=== PATIENT | male | born 2000 | race Two or more races ===

== ENCOUNTER 2024-11-20 21:01 | Emergency (ER) | payer SELFPAY ==
[2024-11-20 21:03] VITALS: BMI 30.7
[2024-11-20 21:51] VITALS: BP 151/97; PULSE 108; RESP 20; TEMP 37.2; O2SAT 99
--- NOTE | 2024-11-20 21:51 | XR_ITS ---
Examination: CT abdomen and pelvis without contrast. Coronal 3-D reconstructions. Sagittal 2-D reconstructions. Date and time of exam:November 20, 2024 11:16 PM INDICATIONS: Flank pain and back pain 538 urinary urgency CTDI: vol (mGy): 8.77 DLP: (mGycm): 538 Technique: Axial images of the abdomen have been obtained, 3 mm slice thickness Intravenous contrast material has not been administered. Low dose protocols were performed. One or more of the following dose reduction techniques were used; automated exposure control, adjustment of the mA and/or KV according to patient size, use of iterative reconstruction technique. Findings: No focal liver or splenic lesions No gallstones No pancreatic mass Mild right hydronephrosis 3 mm distal right ureterovesical junction calculus Normal appendix No bowel obstruction Contracted urinary bladder IMPRESSION: Mild right hydronephrosis secondary to 3 mm distal right ureterovesical junction calculus
--- NOTE | 2024-11-20 21:51 | PD.EDBACK ---
ED Back Injury Pain RME/HPI General Chief Complaint: Abdominal Pain Stated Complaint: LOWER ABD AND BACK PAIN, CONSTIPATION Time Seen by Provider: 11/20/24 21:50 Source: patient Arrival date/time: 11/20/24 21:01 Mode of arrival: ambulatory Limitations: no limitations RME / HPI RME / HPI Narrative: Patient is a healthy 24-year-old male with no past medical or surgical history. He states he is here today with a 1 hour history of low back pain. He also endorses a 2-day history of urinary frequency and urgency. He has no dysuria or hematuria. He denies any vomiting or nausea. He states his last bowel movement was 5 days ago and he does endorse some mild lower abdominal cramping today. Denies any fevers or chills. He has no testicular pain. He has no other acute complaints or concerns. Related Data Previous Rx's ?Medication ?Instructions ?Recorded ibuprofen 600 mg tablet 600 mg PO Q8H PRN pain #20 tabs 11/20/24 tamsulosin 0.4 mg capsule (Flomax) 0.4 mg PO QDAY #20 caps 11/20/24 cephalexin 500 mg capsule 500 mg PO QID #40 caps 11/21/24 hydrocodone 5 mg-acetaminophen 325 1 tab PO Q6H PRN pain #12 tabs 11/21/24 mg tablet ondansetron 4 mg disintegrating 4 mg PO Q8H PRN nausea and 11/21/24 tablet vomiting #20 tabs Allergies Allergy/AdvReac Type Severity Reaction Status Date / Time No Known Allergies Allergy Verified 11/20/24 21:03 Review of Systems Review of Systems Systems Reviewed: All systems reviewed, normal except as documented ED Exam General Limitations: Present no limitations General appearance: Present alert and in no apparent distress Head Head exam: Present atraumatic Eye Eye exam: Present normal appearance, PERRL and EOMI ENT ENT exam: Present normal exam, normal oropharynx and mucous membranes moist Neck Neck exam: Present normal inspection, full ROM and trachea midline Chest Chest inspection: Present normal inspection and symmetric chest wall rise Respiratory Respiratory exam: Present normal lung sounds bilaterally Cardiovascular Cardiovascular exam: Present regular rate, normal rhythm and normal heart sounds Abdominal Exam Abdominal exam: Present soft; Absent distention, tenderness, guarding or rebound Extremities Exam Extremities exam: Present normal inspection and full ROM Back Exam Back exam: Present normal inspection and full ROM; Absent CVA tenderness (R) or CVA tenderness (L) Neurological Exam Neurological exam: Present alert and oriented X3 Psychiatric Psychiatric exam: Present normal affect and normal mood Skin Skin exam: Present warm, dry, intact and normal color Course Quality Measures none Orders Category Date Time Status CT abdomen pelvis wo con Stat Exams 11/20/24 21:51 Completed CBC Stat Lab 11/20/24 21:58 Completed CMP [Comprehensive Metabolic Panel] Stat Lab 11/20/24 21:58 Completed UA, C/S IF [Urinalysis, C/S if Indicated] Stat Lab 11/20/24 22:08 Completed Ketorolac Inj [Toradol Inj] Med 11/20/24 21:51 Discontinued 15 mg IM X1 ONE Lidocaine 5% Patch Med 11/20/24 21:51 Discontinued 1 patch TOP X1 ONE Morphine Inj Med 11/21/24 01:09 Discontinued 4 mg IVP X1 ONE Ondansetron Inj [Zofran Inj] Med 11/21/24 01:09 Discontinued 4 mg IVP X1 ONE Sodium Chloride 0.9% 1000 ml [Ns] 1,000 ml Med 11/21/24 01:10 Discontinued IV 999 mls/hr Tamsulosin HCl [Flomax] Med 11/21/24 01:12 Discontinued 0.4 mg PO X1 ONE cefTRIAXone [Rocephin] 2 gm Med 11/21/24 01:10 Discontinued SODIUM CHLORIDE 0.9% (Popper) [Ns 0.9% (P)] 50 ml IV X1 Vital Signs Vital signs: Vital Signs Temperature 98.9 F 11/20/24 21:51 Pulse Rate 108 H 11/20/24 21:51 Respiratory Rate 20 11/20/24 21:51 Blood Pressure 151/97 H 11/20/24 21:51 Pulse Oximetry (%) 99 11/20/24 21:51 Oxygen Delivery Method Room Air 11/20/24 21:51 Back Pain / Injury MDM Narrative MDM Narrative:: Patient is a healthy 24-year-old male with no past medical or surgical history. He states he is here today with a 1 hour history of low back pain. He also endorses a 2-day history of urinary frequency and urgency. He has no dysuria or hematuria. He denies any vomiting or nausea. He states his last bowel movement was 5 days ago and he does endorse some mild lower abdominal cramping today. Denies any fevers or chills. He has no testicular pain. He has no other acute complaints or concerns. On exam, patient is nontoxic. No visible signs distress. Vital signs are stable. He has no CVA tenderness. Abdomen is soft and supple with no masses or guarding. Patient has a leukocytosis of 16.7 K, no anemia. There is mild hyperglycemia at 121, creatinine is unremarkable. CMP is otherwise unremarkable. Urinalysis obtained which reveals 42 erythrocytes, 6 leukocytes, [place]. Calcium oxalate crystals are present. CT of the abdomen pelvis is pending at the time of signout. Suspect patient has ureterlithiasis. Case signed out to my peer FER Jones at shift change. Patient data External records reviewed:: None Clinical information provided by:: patient Social determinants that could affect healthcare access:: none Patient has the following chronic illnesses:: n/a How is presenting disease/condition affected by chronic disease/condition?: uneffected by Evaluation data The following diagnostics were reviewed and interpreted by me:: lab results and radiology exam(s) Lab and/or radiology exams considered but not ordered:: n/a Interpretation Summary: n/a Medications / Prescriptions Medications or Prescriptions considered but not ordered:: n/a Medication administrations:: Medication Administration History Discontinued Medications Sodium Chloride (Ns) 1,000 mls @ 999 mls/hr IV .Q1H1M ONE Stop: 11/21/24 02:10 Last Infusion: 11/21/24 01:55 Dose: Infused Documented By: Admin: 11/21/24 01:20 Dose: 999 mls/hr Documented By: BRADEN Ceftriaxone Sodium 2 gm/ (Sodium Chloride) 50 mls @ 100 mls/hr IV X1 ONE Stop: 11/21/24 01:39 Last Infusion: 11/21/24 01:56 Dose: Infused Documented By: Admin: 11/21/24 01:25 Dose: 100 mls/hr Documented By: BRADEN Ketorolac Tromethamine (Ketorolac Inj 60 Mg/2 Ml Vial) 15 mg IM X1 ONE Stop: 11/20/24 21:52 Last Admin: 11/20/24 22:08 Dose: 15 mg Documented By: VANI Lidocaine (Lidocaine 5% 1 Patch) 1 patch TOP X1 ONE Stop: 11/20/24 21:52 Last Admin: 11/20/24 22:10 Dose: 1 patch Documented By: VANI Morphine Sulfate (Morphine Sulf Inj 10 Mg/Ml Vial) 4 mg IVP X1 ONE Stop: 11/21/24 01:10 Last Admin: 11/21/24 01:24 Dose: 4 mg Documented By: BRADEN Ondansetron HCl (Ondansetron Inj 2 Mg/Ml Inj 2 Ml) 4 mg IVP X1 ONE; Protocol Stop: 11/21/24 01:10 Last Admin: 11/21/24 01:24 Dose: 4 mg Documented By: BRADEN Tamsulosin HCl (Tamsulosin Hcl 0.4 Mg Capsule) 0.4 mg PO X1 ONE Stop: 11/21/24 01:13 Last Admin: 11/21/24 01:25 Dose: 0.4 mg Documented By: BRADEN see above Consultations Consultation(s) initiated? (list below): No Diagnosis Most likely diagnosis given after review of the tests above:: dyuria, uti, kidney stone Admission Indicated Admission indicated?: not indicated Admission Request Was there a request for admission?: No Disposition Plan Disposition Plan: Discharge Discharge Attestation Discharge Attestation: The patient and all family members were given an opportunity to ask questions and understood the discharge instructions. Discharge instructions specifically effects, indications for sooner follow up or return to the emergency department, and the expected course of current diagnosis. Patient condition: Stable Discharge Plan Plan Patient Disposition: HOME (Self Care) Patient condition on transfer: Stable Prescriptions/Referrals Prescriptions/Med Rec: New tamsulosin [Flomax] 0.4 mg capsule 0.4 mg PO QDAY Qty: 20 0RF ibuprofen 600 mg tablet 600 mg PO Q8H PRN (Reason: pain) Qty: 20 0RF hydrocodone-acetaminophen 5-325 mg tablet 1 tab PO Q6H MDD max 4 tabs per day PRN (Reason: pain) Qty: 12 0RF ondansetron 4 mg tablet,disintegrating 4 mg PO Q8H PRN (Reason: nausea and vomiting) Qty: 20 0RF cephalexin 500 mg capsule 500 mg PO QID Qty: 40 0RF Referrals: Eric Torres MD [Physician] - 11/21/24 (For further evaluation and treatment of hydronephrosis and ureteral stone) No Primary/Family,Physician [Primary Care Provider] - In 1 week Problem List Clinical Impression: Acute flank pain, Ureteral stone, Urinary tract infection, Hydronephrosis Patient/Caregiver Discharge Instructions Education Materials: Urinary Tract Infections in Men, Kidney Stones: Your Evaluation, Understanding Hydronephrosis, ED Flank Pain, Uncertain Cause Additional Instructions: Follow-up with your primary care physician in 2 days for reevaluation and to be referred to urologist for further evaluation and treatment of your hydronephrosis and ureteral stone worsening symptoms or any emergent concerns such as fever chills abdominal pain flank pain unable to urinate blood in the urine call 911 or go to the nearest emergency room it is very important to see urologist in 2 days if not return to the emergency room immediately or call 911 worsening symptoms or any emergent concern call 911 or go to the nearest emergency room take your medication as directed finish the course of antibiotic increase water intake keep hydrated drink cranberry juice Pedialyte Gatorade for hydration Print Language: German Stand Alone Forms: Shauna Award Info., Patient Portal Info Letter PA/[employer] Supervising Physician PA/SIGRID Supervising Physician: Dr. Smith
[2024-11-20 22:05] LABS: Basophils # (Auto) 0.1 Thou/mm3 (0.0-0.2); Basophils % (Auto) 0 % (0-2.5); Eosinophils # (Auto) 0.1 Thou/mm3 (0.0-0.5); Eosinophils % (Auto) 0 % (0-10); Hematocrit 42.9 % (41.0-53.0); Hemoglobin 14.6 g/dL (13.5-16.0); Immature Granulocytes Auto 0.07 Thou/mm3 (0.00-0.00); Lymphocytes # (Auto) 1.6 Thou/mm3 (1.0-4.8); Lymphocytes % (Auto) 10 % (10-50); Mean Corpuscular HGB Conc 34.0 g/dl (31.0-37.0); Mean Corpuscular Hemoglobin 29.4 pg (25.0-35.0); Mean Corpuscular Volume 86 fL (80-100); Monocytes # (Auto) 0.9 Thou/mm3 (0.0-0.8); Monocytes % (Auto) 5 % (0-12); Neutrophils # (Auto) 14.0 Thou/mm3 (1.8-7.7); Neutrophils % (Auto) 84 % (37-80); Nucleated Red Blood Cell # 0.00 Thou/mm3 (0.00-0.00); Nucleated Red Blood Cell % 0 /100 WBC (0); Platelet Count 310 Thou/mm3 (140-440); RDW Standard Deviation 39.0 fL (35.1-43.9); Red Blood Count 4.97 Miln/mm3 (4.50-5.90); White Blood Count 16.7 Thou/mm3 (3.8-10.6)
[2024-11-20] MEDS: KETOROLAC INJ 60 MG/2 ML VIAL 15 MG IM (22:08)
[2024-11-20] MEDS: LIDOCAINE 5% 1 PATCH TOP (22:10)
[2024-11-20 22:23] LABS: Collection Type, Urine Voided; Squamous Epithelial Cell,Urine 0 /hpf (0-5)
[2024-11-20 22:23] LABS: Alanine Aminotransferase 44 U/L (10-49); Albumin, Serum 5.0 gm/dL (3.5-5.0); Albumin/Globulin Ratio 1.9 (1.2-2.2); Alkaline Phosphatase 62 U/L (46-116); Anion Gap 11 (7-16); Aspartate Amino Transferase 23 U/L (0-34); BUN/Creatinine Ratio 8 Ratio (12-20); Bilirubin,Total 0.6 mg/dL (0.3-1.2); Blood Urea Nitrogen 10 mg/dL (9-23); Calcium 10.7 mg/dL (8.3-10.6); Calcium (Corrected) 10.7 mg/dL (8.5-10.1); Carbon Dioxide 25.9 mMol/L (20.0-31.0); Chloride 105 mMol/L (98-107); Creatinine (Component) 1.2 mg/dL (0.6-1.3); Estimated Creatinine Clearance 96.0 mL/min (>60); Globulin 2.6 gm/dL (2.3-3.5); Glucose 121 mg/dL (74-106); Osmolality,Calculated 283 (275-295); Potassium 4.0 mMol/L (3.4-5.1); Sodium 142 mMol/L (136-145); Total Protein 7.6 gm/dL (5.7-8.2); eGFR > 60 See Note
[2024-11-20 22:40] LABS: Bilirubin,Urine Negative (Negative); Blood,Urine 2+ (Negative); Calcium Oxalate Crystals,Urine 2+; Clarity,Urine Clear (Clear/Hazy); Color,Urine Yellow (Lt Yel-Yel); Culture Indicated,Urine Not Indicated; Glucose, Urine Negative (Negative); Ketones,Urine Trace (Negative); Leukocyte Esterase,Urine Positive (Negative); Nitrite,Urine Negative (Negative); PH,Urine 6.0 (5.0-7.0); Protein,Urine 1+ (Neg - Trace); RBC,Urine 42 /hpf (0-3); Specific Gravity,Urine 1.041 (1.001-1.035); Urobilinogen,Urine 3.0 mg/dL (0.0-1.0); WBC,Urine 6 /hpf (0-5)
[2024-11-21 00:42] VITALS: BP 149/94; PULSE 93; RESP 17; TEMP 37.2; O2SAT 98
--- NOTE | 2024-11-21 01:17 | EDNOTE_ITS ---
Emergency Room Addendum Addendum Narrative: Received patient from [facility] awaiting for the result of the CT scan of the abdomen and pelvis and urinalysis History reviewed: Patient is a healthy 24-year-old male with no past medical or surgical history. He states he is here today with a 1 hour history of low back pain. He also endorses a 2-day history of urinary frequency and urgency. He has no dysuria or hematuria. He denies any vomiting or nausea. He states his last bowel movement was 5 days ago and he does endorse some mild lower abdominal cramping today. Denies any fevers or chills. He has no testicular pain. He has no other acute complaints or concerns. I agreed with the physical examination of the previous provider laboratory was reviewed noted leukocytosis with the WBC of 16.7 no anemia kidney and liver function is normal no electrolyte imbalance urinalysis showed WBC and blood in the urine suggestive of urinary tract infection CT scan showed a mild hydronephrosis with 3 mm distal right ureteral stone patient was given a bolus of normal saline morphine for pain Zofran for vomiting and was given 2 g of ceftriaxone for urinary tract infection I have a long discussion with the patient patient will follow-up with PCP in 2 days for reevaluation and to see the urologist for further evaluation and treatment of hydronephrosis and ureteral stone patient was aware for any worsening symptoms or any emergent concern return precaution in the ER was advised patient was prescribed with cephalexin for UTI hydrocodone for pain Flomax and Zofran for vomiting Patient was discharged with comfortable condition walking with stable gait. Patient verbalized no further complains explained diagnosis and answered patient question. Patient is comfortable with the proposed management plan including the need to follow up with his/her primary care physician and any specialist if applicable Discussed patient for any urgent condition or worsening sx, He/She needed to go to emergency room immediately or call 911. Patient acknowledge the responsibility to follow up as instructed and to monitor her/his symptoms. For any persistence of the symptoms for more than 3-5 days return precaution advised. Discussed the result of the test and was given printed discharge instruction
[2024-11-21] MEDS: SODIUM CHLORIDE 0.9% 1000 ML 1,000 ML 999 ML IV (01:20)
[2024-11-21] MEDS: ONDANSETRON INJ 2 MG/ML INJ 2 ML 4 MG IVP (01:24)
[2024-11-21] MEDS: MORPHINE SULF INJ 10 MG/ML VIAL 4 MG IVP (01:24)
[2024-11-21] MEDS: cefTRIAXone 2 GM in SODIUM CHLORIDE 0.9% (Popper) 50 ML IV (01:25)
[2024-11-21] MEDS: TAMSULOSIN HCL 0.4 MG CAPSULE PO (01:25)
== END 2024-11-21 01:57 | disposition home or self-care (01) ==
PROVIDERS: Physician Assistant Medical; Emergency Provider Emergency Medicine
DX: N13.6 Pyonephrosis (principal)
CPT/HCPCS: 36415; 74176; 80053; 81001; 85025; 87491; 87591; 87661; 96365; 96372; 96375; 99283; J0696; J1885; J2270; J2405; J3490; J7030; J7050; A9270